=== PATIENT | female | born 1980 | race Caucasian/White ===

== ENCOUNTER 2022-06-25 11:14 | Day surgery (SDC) | payer OTHER ==
[2022-06-23 15:53] VITALS: BMI 36.7
[2022-06-25] MEDS ORDERED: PROPOFOL 60 ML ONE (12:14)
[2022-06-25 13:01] VITALS: PULSE 74; TEMP 98
[2022-06-25 13:10] VITALS: BP 101/58; RESP 16
== END 2022-06-25 13:32 | disposition home or self-care (01) ==
LOC: FASU-ENDO 11:14
PROVIDERS: ATTEND Internal Medicine Gastroenterology
PROC: 0DBL8ZX Excision of Transverse Colon, Via Natural or Artificial Opening Endoscopic, Diagnostic (ICD-10-PCS; 2022-06-25)
PROC: 0DBP8ZX Excision of Rectum, Via Natural or Artificial Opening Endoscopic, Diagnostic (ICD-10-PCS; 2022-06-25)
PROC: 0DBM8ZX Excision of Descending Colon, Via Natural or Artificial Opening Endoscopic, Diagnostic (ICD-10-PCS; 2022-06-25)
PROC: 0DBK8ZX Excision of Ascending Colon, Via Natural or Artificial Opening Endoscopic, Diagnostic (ICD-10-PCS; principal; 2022-06-25 12:17)
DX: R19.7 Diarrhea, unspecified (principal); K64.1 Second degree hemorrhoids
CPT/HCPCS: 81025; 88305-TC